=== PATIENT | male | born 1940 | race Caucasian/White ===

== ENCOUNTER 2023-03-04 08:00 | Outpatient (RCR) | payer OTHER, SELFPAY | END 2023-03-06 10:11 | disposition home or self-care (01) | LOC: RPT 08:00 | PROVIDERS: ATTENDING PHYSICIAN Surgery; FAMILY PHYSICIAN Physician Assistant Medical | DX: I89.0 Lymphedema, not elsewhere classified (principal); Z73.6 Limitation of activities due to disability; C44.622 Squamous cell carcinoma of skin of right upper limb, including shoulder | CPT/HCPCS: 97016; 97110; 97140 ==

== ENCOUNTER 2023-03-04 14:00 | Outpatient (RCR) | payer OTHER, SELFPAY | END 2023-03-04 23:59 | disposition home or self-care (01) | LOC: RPT 14:00 | PROVIDERS: ATTENDING PHYSICIAN Physician Assistant Medical | DX: R29.898 Other symptoms and signs involving the musculoskeletal system (principal); R26.81 Unsteadiness on feet | CPT/HCPCS: 97110; 97112 ==

== ENCOUNTER → 2024-01-31 09:47 | Outpatient (REF) | payer OTHER, SELFPAY | LOC: WDC 09:47 | PROVIDERS: ATTENDING PHYSICIAN Radiology Radiation Oncology; FAMILY PHYSICIAN Family Medicine | DX: R92.8 Other abnormal and inconclusive findings on diagnostic imaging of breast (principal); R92.1 Mammographic calcification found on diagnostic imaging of breast; C77.9 Secondary and unspecified malignant neoplasm of lymph node, unspecified; C80.1 Malignant (primary) neoplasm, unspecified | CPT/HCPCS: 76642; 77062; 77066 ==

== ENCOUNTER 2024-02-03 13:09 | Outpatient (RCR) | payer OTHER, SELFPAY | END 2024-02-03 23:59 | disposition home or self-care (01) | LOC: RPT 13:09 | PROVIDERS: ATTENDING PHYSICIAN Family Medicine | DX: M54.59 Other low back pain (principal); G89.29 Other chronic pain; Z73.6 Limitation of activities due to disability; M25.552 Pain in left hip; G62.9 Polyneuropathy, unspecified; R26.81 Unsteadiness on feet; R26.89 Other abnormalities of gait and mobility; M62.81 Muscle weakness (generalized) | CPT/HCPCS: 97110; 97112; 97162 ==

== ENCOUNTER 2024-02-24 12:15 | Outpatient (RCR) | payer OTHER, SELFPAY | END 2024-02-24 23:59 | disposition home or self-care (01) | LOC: RPT 12:15 | PROVIDERS: ATTENDING PHYSICIAN Family Medicine | DX: M54.59 Other low back pain (principal); Z73.6 Limitation of activities due to disability; G89.29 Other chronic pain; M25.552 Pain in left hip; G62.9 Polyneuropathy, unspecified; R26.81 Unsteadiness on feet; R26.89 Other abnormalities of gait and mobility; M62.81 Muscle weakness (generalized) | CPT/HCPCS: 97110; 97112 ==

== ENCOUNTER 2024-04-02 15:12 | Outpatient (RCR) | payer OTHER, SELFPAY | END 2024-04-02 23:59 | disposition home or self-care (01) | LOC: RPT 15:12 | PROVIDERS: ATTENDING PHYSICIAN Family Medicine | DX: M54.59 Other low back pain (principal); G89.29 Other chronic pain; Z73.6 Limitation of activities due to disability; M25.552 Pain in left hip; G62.9 Polyneuropathy, unspecified; R26.81 Unsteadiness on feet; R26.89 Other abnormalities of gait and mobility; M62.81 Muscle weakness (generalized) | CPT/HCPCS: 97110; 97112; 97161; 97530 ==

== ENCOUNTER 2024-04-09 14:26 | Outpatient (RCR) | payer OTHER, SELFPAY | END 2024-04-09 23:59 | disposition home or self-care (01) | LOC: RPT 14:26 | PROVIDERS: ATTENDING PHYSICIAN Family Medicine | DX: M54.59 Other low back pain (principal); Z73.6 Limitation of activities due to disability; M25.552 Pain in left hip; G89.29 Other chronic pain; R26.81 Unsteadiness on feet; G62.9 Polyneuropathy, unspecified; R26.89 Other abnormalities of gait and mobility; M62.81 Muscle weakness (generalized) | CPT/HCPCS: 97110; 97112 ==

== ENCOUNTER 2024-05-29 11:04 | Outpatient (RCR) | payer OTHER, SELFPAY | END 2024-05-29 23:59 | disposition home or self-care (01) | LOC: RPT 11:04 | PROVIDERS: ATTENDING PHYSICIAN Family Medicine | DX: M54.59 Other low back pain (principal); Z73.6 Limitation of activities due to disability; M25.552 Pain in left hip; G62.9 Polyneuropathy, unspecified; R26.81 Unsteadiness on feet; R26.89 Other abnormalities of gait and mobility; G89.29 Other chronic pain; M62.81 Muscle weakness (generalized); N18.9 Chronic kidney disease, unspecified | CPT/HCPCS: 97110; 97112; 97530 ==

== ENCOUNTER → 2024-05-30 14:21 | Outpatient (REF) | payer OTHER, SELFPAY ==
[2024-05-30 14:23] LABS: % Basophils 1.4 % (0-2); % Lymphocytes 32.9 % (20.5-51.1); % Monocytes 13.9 % (1.7-9.3); % Neutrophils 51.8 % (42.2-75.2); Absolute Lymphocytes 0.7 10^3/uL (1.2-3.4); Absolute Monocytes 0.3 10^3/uL (0.1-0.6); Absolute Neutrophils 1.1 10^3/uL (1.4-6.5); Hematocrit 31.5 % (39.0-52.0); Hemoglobin 9.7 g/dL (13.0-18.0); Mean Corp Hgb Conc. 30.8 g/dL (33.0-37.0); Mean Corpuscular Hgb 29.1 pg (27.0-31.0); Mean Corpuscular Volume 94.6 fL (80.0-94.0); Mean Platelet Volume 10.2 fL (7.4-10.4); Platelet Count 169 10^3/uL (130-400); Red Blood Cell Count 3.33 10^6/uL (4.70-6.10); Red Cell Dist. Width 14.4 % (11.5-14.5)
[2024-05-30 14:24] LABS: White Blood Cell Count 2.2 10^3/uL (4.8-10.8)
[2024-05-30 14:54] LABS: Blood Urea Nitrogen 22 mg/dl (9-20); Calcium 8.8 mg/dl (8.4-10.2); Carbon Dioxide 28 mmol/L (22-30); Chloride 106 mmol/L (98-107); Glucose 107 mg/dl (70-99); Sodium 142 mmol/L (135-145); eGFR > 60.00
== END ==
LOC: OIDL 14:21
PROVIDERS: ATTENDING PHYSICIAN Internal Medicine Hematology & Oncology
DX: D53.9 Nutritional anemia, unspecified (principal); D50.9 Iron deficiency anemia, unspecified; D72.819 Decreased white blood cell count, unspecified; R44.8 Other symptoms and signs involving general sensations and perceptions
CPT/HCPCS: 80048; 85025

== ENCOUNTER 2024-06-26 15:10 | Outpatient (RCR) | payer OTHER, SELFPAY | END 2024-06-26 23:59 | disposition home or self-care (01) | LOC: RPT 15:10 | PROVIDERS: ATTENDING PHYSICIAN Family Medicine | DX: M54.59 Other low back pain (principal); Z73.6 Limitation of activities due to disability; M25.552 Pain in left hip; G62.9 Polyneuropathy, unspecified; R26.81 Unsteadiness on feet; R26.89 Other abnormalities of gait and mobility; G89.29 Other chronic pain; M62.81 Muscle weakness (generalized); N18.9 Chronic kidney disease, unspecified | CPT/HCPCS: 97110; 97112 ==

== ENCOUNTER 2024-07-25 13:54 | Outpatient (RCR) | payer OTHER, SELFPAY | END 2024-07-25 23:59 | disposition home or self-care (01) | LOC: RPT 13:54 | PROVIDERS: ATTENDING PHYSICIAN Family Medicine | DX: M54.59 Other low back pain (principal); Z73.6 Limitation of activities due to disability; M25.552 Pain in left hip; G62.9 Polyneuropathy, unspecified; R26.81 Unsteadiness on feet; R26.89 Other abnormalities of gait and mobility; G89.29 Other chronic pain; M62.81 Muscle weakness (generalized); N18.9 Chronic kidney disease, unspecified | CPT/HCPCS: 97110; 97112 ==

== ENCOUNTER 2024-08-06 15:26 | Outpatient (RCR) | payer OTHER, SELFPAY | END 2024-08-06 23:59 | disposition home or self-care (01) | LOC: RPT 15:26 | PROVIDERS: ATTENDING PHYSICIAN Family Medicine | DX: M54.59 Other low back pain (principal); Z73.6 Limitation of activities due to disability; M25.552 Pain in left hip; G62.9 Polyneuropathy, unspecified; R26.81 Unsteadiness on feet; R26.89 Other abnormalities of gait and mobility; G89.29 Other chronic pain; M62.81 Muscle weakness (generalized); N18.9 Chronic kidney disease, unspecified | CPT/HCPCS: 97110; 97112 ==